=== PATIENT | male | born 1945 | race Caucasian/White ===

== ENCOUNTER 2017-06-27 12:25 | Emergency (ER) | payer OTHER ==
[~2017-06-27] VITALS: Ht 182.9 cm; Wt 74.8 kg
[2017-06-27 12:30] VITALS: TEMP 36.5; Ht 182.9 cm; Wt 74.8 kg
[2017-06-27] MEDS ORDERED: SIMV10TA2 PO (12:39)
[2017-06-27] MEDS ORDERED: CMD75 PO (12:39)
[2017-06-27] MEDS ORDERED: CMD5 PO (12:39)
[2017-06-27] MEDS ORDERED: XYLOCAINE 1%/SOD BICARB 20 ML VIAL INFIL ONE (13:00)
--- NOTE | 2017-06-27 13:25 | EMERGENCY ROOM VISIT NOTE ---
History Report prepared by Camila: Meri Lindo Under the Supervision of: Dr. Patel Chapa D.O. 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 He rates his intensity as a 1/10 in severity. The patient reports he was cut when his hunting rifle cut his face. He denies having any headaches or visual difficulties. He denies any abdominal or neck pain. The patient states he takes Coumadin for history of Deep Vein Thrombosis. He has never experienced any clotting issues after cuts or injuries. Source of History: patient Onset: Today Position: head (right forehead ) Symptom Intensity: 1/10 Timing: constant Associated Symptoms: No headache, No neck pain, No abdominal pain Review of Systems See HPI for pertinent positives & negatives. A total of 10 systems reviewed and were otherwise negative. Past Medical & Surgical Medical Problems: (1) Deep vein thrombosis Social History Smoking Status: Former Smoker Smokeless Tobacco Use: No Alcohol Use: none Drug Use: none Marital Status: Housing Status: lives with family Occupation Status: retired Current/Historical Medications Scheduled Simvastatin (Zocor), Unknown Dose PO QPM Warfarin Sod (Coumadin), 5 MG PO 4XWK Warfarin Sod (Coumadin), 7.5 MG PO 3XWK Allergies Coded Allergies: No Known Allergies (Unverified , 06/27/17) Physical Exam Vital Signs Date Time Temp Pulse Resp B/P (MAP) Pulse Ox O2 Delivery O2 Flow Rate FiO2 06/27/17 13:32 62 18 170/87 96 06/27/17 12:30 36.5 67 18 176/88 100 Room Air Physical Exam GENERAL: Patient is awake, alert, in no acute distress, patient is resting comfortably and showing no signs of anxiety EYES: The conjunctivae are clear. The pupils are round and reactive. EARS, NOSE, MOUTH AND THROAT: There was an irregularly shaped laceration on the right forehead. The nose is without any evidence of any deformity. Mucous membranes are moist tongue is midline NECK: The neck is nontender and supple. RESPIRATORY: Normal respiratory effort is noted there is no evidence of wheezing rhonchi or rales CARDIOVASCULAR: Regular rate and rhythm noted there no murmurs rubs or gallops normal S1 normal S2 GASTROINTESTINAL: The abdomen is soft. Bowel sounds are present in all quadrants. Abdomen is nontender MUSCULOSKELETAL/EXTREMITIES: There is no evidence of gross deformity full range of motion is noted in the hips and shoulders SKIN: There is no obvious evidence of any rash. There are no petechiae, pallor or cyanosis noted. NEUROLOGIC: Patient is awake alert and oriented x3 Medical Decision & Procedures Medications Administered Medications (Trade) Dose Ordered Sig/Gary Route Start Time Stop Time Status Last Admin Dose Admin Lidocaine HCl (Buffered Lidocaine 1% Inj) 20 ml ONE ONCE INFIL 06/27/17 13:00 06/27/17 13:01 DC 06/27/17 13:00 20 ML Procedure Location: right forehead Total length: 2cm Complexity: simple Verbal consent was obtained after the risks and benefits were explained, including but not limited to bleeding, scarring, infection, pain, and bone/joint /nerve damage. At this time, the risks of the procedure are less than the risks of NOT performing the procedure. A time out was taken and the correct patient and site identified. The skin was prepped with betadine. The target area was anesthetized with 3 ml of 1% lidocaine without epinephrine. Copious irrigation was performed using NSS. The skin was re-prepped with betadine and a sterile field set. The wound was explored for foreign bodies and none found. Examination revealed no injury to deep structures such as tendons, bone, or significant blood vessels. Debridement was not performed. The wound edges were approximated using 6, 5-0 simple interrupted nylon sutures. Hemostasis and excellent approximation was achieved. Antibacterial ointment and a sterile dressing applied. Detailed wound care instructions and signs and symptoms of infection reviewed with the patient. No complications and the patient tolerated the procedure well. ED Course 1301: Ordered Lidocaine HCL 20ml INFIL. 1305: The patient was evaluated in room D1. A complete history and physical examination were performed. 1335: Upon reevaluation, the patient is resting comfortably. I discussed the results and treatment plan with him. He verbalized agreement of the treatment plan. The patient was discharged home. Medical Decision Nursing notes reviewed. Differential diagnosis the patient could include vascular injury, neurologic injury, delayed hemostasis, infection, foreign body and other differential diagnoses were considered. The patient is a 72-year-old male who presented to the emergency department for evaluation of forehead laceration. The patient was shooting a rifle when he was struck on the forehead with the scope. The patient did not have loss of consciousness. At this time he does not a headache. Currently he takes Coumadin but good hemostasis was achieved using pressure to the wound area and laceration was cleaned in usual fashion. Sutures were placed. The patient tolerated the procedure well. He was encouraged to have sutures removed in 5-7 days. He was also encouraged to follow-up with his family doctor for reevaluation. Currently he is visiting from outside of the area and he is in our area for hunting season. He was encouraged to return to our emergency department immediately if he develop worsening symptoms such as signs of head injury fever or signs of laceration infection or if need arises. Medication Reconcilliation Current Medication List: was personally reviewed by me Blood Pressure Screening Patient's blood pressure: Elevated blood pressure Blood pressure disposition: Elevated BP felt to be situational Impression Primary Impression: Laceration of head Scribe Attestation The scribe's documentation has been prepared under my direction and personally reviewed by me in its entirety. I confirm that the note above accurately reflects all work, treatment, procedures, and medical decision making performed by me. Departure Information Dispostion Home / Self-Care Referrals No Doctor, Assigned (PCP) Patient Instructions My [facility] Additional Instructions Continue to use Motrin and Tylenol as directed for pain. Use triple antibiotic ointment to the area 2-3 times a day. Follow-up with your family doctor for suture removal 5-7 days. Return to emergency apartment immediately if symptoms change worsen or need arises. Problem Qualifiers Primary Impression: Laceration of head Encounter type: initial encounter Location of open wound of head: unspecified part of head Foreign body presence: without foreign body Qualified Codes: S01.91XA - Laceration without foreign body of unspecified part of head, initial encounter
[2017-06-27 13:32] VITALS: BP 170/87; PULSE 62; O2SAT 96
== END 2017-06-27 13:33 | disposition home or self-care (01) ==
LOC: C.EDB 12:27 → C.EDD 13:33
DX: S01.81XA Laceration without foreign body of other part of head, initial encounter (principal); W33.12XA Accidental malfunction of hunting rifle, initial encounter; Z79.01 Long term (current) use of anticoagulants; Z87.891 Personal history of nicotine dependence